=== PATIENT | male | born 1960 | race Caucasian/White ===

== ENCOUNTER 2017-06-15 17:52 | Inpatient (IN) | payer OTHER ==
[2017-06-15] MEDS ORDERED: NS 1,000 ML IV ONE ×2 (18:15→18:46)
--- NOTE | 2017-06-15 18:18 | EDPHY ---
H & P Time Seen by Provider: 06/15/17 17:56 HPI/ROS: CHIEF COMPLAINT: Black stools and vomiting blood HISTORY OF PRESENT ILLNESS: Patient started having black stools yesterday. This morning he felt nauseous, had a shot of hard alcohol and then proceeded to vomit including blood. Patient is continued to have black stools with rapid heart rate. Associated with a little bit of abdominal discomfort but no further vomiting. No chest pain shortness of breath or lightheadedness. No Pepto-Bismol or any red colored food. He has daily alcohol but denies previous history of ulcer or varices. He also takes about 8-10 aspirin week for various orthopedic things REVIEW OF SYSTEMS: Eye: no change in vision ENT: no sore throat Cardiac: no chest pain or syncope Pulmonary: no cough or SOB Abdomen: HPI Musculoskeletal: no back pain Skin: no rash Neuro: no headache Constitutional: no fever : no urinary symptoms A comprehensive 10 point review of systems is otherwise negative aside from elements mentioned in the history of present illness. PAST MEDICAL HISTORY: Includes hypertension Social history: Daily alcohol General Appearance: Alert and conversant, cooperative. Eyes: No scleral icterus. ENT, Mouth: Normal mucous membranes. Respiratory: Normal respiratory effort, breath sounds equal, lungs are clear to auscultation. Cardiovascular: Regular rate and rhythm. Tachycardia without murmur Gastrointestinal: Abdomen is soft and non tender. Rectal exam shows melena. Neurological: Alert, face symmetric, normal motor and sensory in extremities. Skin: Warm and dry, no rashes. Musculoskeletal: No peripheral edema. Psychiatric: Not agitated. Emergency Department course/MDM: CBC and chemistry, fecal occult blood, protime and liver function test. Normal saline 1 L IV. 182: Fecal occult blood positive, hemoglobin hematocrit 14 and 43, Protonix drip started in the ED. Admission hospitalist for endoscopy. Normal INR, low suspicion for varices. 184: Discussed for Kristian. Smoking Status: Never smoked Constitutional: Initial Vital Signs Temperature (C) 36.5 C 06/15/17 17:52 Heart Rate 114 H 06/15/17 17:52 Respiratory Rate 18 06/15/17 17:52 Blood Pressure 161/108 H 06/15/17 17:52 O2 Sat (%) 96 06/15/17 17:52 O2 Delivery Mode Room Air Allergies/Adverse Reactions: No Known Allergies Allergy (Unverified 06/15/17 17:58) Home Medications: Medication Instructions Recorded Aspirin [Aspirin 325 mg (*)] 650 mg PO DAILY PRN 06/15/17 Atenolol [Tenormin 50 mg (*)] 50 mg PO DAILY 06/15/17 LORazepam [Ativan (*)] 1 mg PO DAILY PRN 06/15/17 Medical Decision Making - Diagnostics EKG Interpretation: 12-lead EKG interpreted by me; official reading is in trace master. My interpretation is sinus tachycardia rate 107, PVC Differential Diagnosis: Differential considered including but not limited to esophageal varices, gastric ulcer, duodenal ulcer, lower gi bleed. Consult/Admit Bed Type: [place] [id number] - Data Points Laboratory Results: Laboratory Results 06/15/17 18:15 06/15/17 18:15 06/15/17 06/15/17 06/15/17 18:15 18:15 18:15 WBC RBC Hgb Hct MCV MCH MCHC RDW Plt Count MPV Neut % (Auto) Lymph % (Auto) Luce % (Auto) Eos % (Auto) Baso % (Auto) Nucleat RBC Rel Count Absolute Neuts (auto) Absolute Lymphs (auto) Absolute Monos (auto) Absolute Eos (auto) Absolute Basos (auto) Absolute Nucleated RBC Immature Gran % Immature Gran # PT 14.9 SEC SEC (12.0-15.0) INR 1.15 (0.83-1.16) APTT 26.2 SEC SEC (23.0-38.0) Sodium Potassium Chloride Carbon Dioxide Anion Gap BUN Creatinine Estimated GFR Glucose Calcium Phosphorus 2.8 mg/dL mg/dL (2.5-4.5) Total Bilirubin Conjugated Bilirubin Unconjugated Bilirubin AST ALT Alkaline Phosphatase Total Protein Albumin Stool Occult Bld Scrn Patient ABO/Rh AB POSITIVE Antibody Screen Pending 06/15/17 06/15/17 06/15/17 18:15 18:15 18:15 WBC 7.56 10^3/uL 10^3/uL (3.80-9.50) RBC 4.17 10^6/uL L 10^6/uL (4.40-6.38) Hgb 14.6 g/dL g/dL (13.7-17.5) Hct 43.6 % % (40.0-51.0) MCV 104.6 fL H fL (81.5-99.8) MCH 35.0 pg H pg (27.9-34.1) MCHC 33.5 g/dL g/dL (32.4-36.7) RDW 12.7 % % (11.5-15.2) Plt Count 145 10^3/uL L 10^3/uL (150-400) MPV 10.9 fL fL (8.7-11.7) Neut % (Auto) 61.0 % % (39.3-74.2) Lymph % (Auto) 27.1 % % (15.0-45.0) Luce % (Auto) 9.8 % % (4.5-13.0) Eos % (Auto) 0.5 % L % (0.6-7.6) Baso % (Auto) 1.2 % % (0.3-1.7) Nucleat RBC Rel Count 0.0 % % (0.0-0.2) Absolute Neuts (auto) 4.61 10^3/uL 10^3/uL (1.70-6.50) Absolute Lymphs (auto) 2.05 10^3/uL 10^3/uL (1.00-3.00) Absolute Monos (auto) 0.74 10^3/uL 10^3/uL (0.30-0.80) Absolute Eos (auto) 0.04 10^3/uL 10^3/uL (0.03-0.40) Absolute Basos (auto) 0.09 10^3/uL 10^3/uL (0.02-0.10) Absolute Nucleated RBC 0.00 10^3/uL 10^3/uL (0-0.01) Immature Gran % 0.4 % % (0.0-1.1) Immature Gran # 0.03 10^3/uL 10^3/uL (0.00-0.10) PT INR APTT Sodium 146 mEq/L H mEq/L (135-145) Potassium 4.0 mEq/L mEq/L (3.5-5.2) Chloride 106 mEq/L mEq/L (97-110) Carbon Dioxide 20 mEq/l L mEq/l (22-31) Anion Gap 20 mEq/L H mEq/L (8-16) BUN 31 mg/dL H mg/dL (7-23) Creatinine 0.8 mg/dL mg/dL (0.7-1.3) Estimated GFR > 60 Glucose 133 mg/dL H mg/dL (70-100) Calcium 9.7 mg/dL mg/dL (8.5-10.4) Phosphorus Total Bilirubin 1.3 mg/dL mg/dL (0.1-1.4) Conjugated Bilirubin 0.6 mg/dL H mg/dL (0.0-0.5) Unconjugated Bilirubin 0.7 mg/dL mg/dL (0.0-1.1) AST 87 IU/L H IU/L (17-59) ALT 107 IU/L H IU/L (21-72) Alkaline Phosphatase 64 IU/L IU/L (38-126) Total Protein 8.0 g/dL g/dL (6.3-8.2) Albumin 5.0 g/dL g/dL (3.5-5.0) Stool Occult Bld Scrn POSITIVE H (NEGATIVE) Patient ABO/Rh Antibody Screen Medications Given: Discontinued Medications Sodium Chloride (Ns) 1,000 mls @ 0 mls/hr IV EDNOW ONE; Wide Open PRN Reason: Protocol Stop: 06/15/17 18:16 Last Admin: 06/15/17 18:27 Dose: 1,000 mls Sodium Chloride (Ns) 1,000 mls @ 3,000 mls/hr IV ONCE ONE Stop: 06/15/17 19:05 Last Admin: 06/15/17 19:07 Dose: 1,000 mls Pantoprazole Sodium (Protonix) 80 mg IVP EDNOW ONE Stop: 06/15/17 18:25 Last Admin: 06/15/17 18:34 Dose: 80 mg Departure - Departure Disposition: [facility] Inpatient Acute Clinical Impression: Upper GI bleed Condition: Fair
[2017-06-15 18:21] LABS: PLATELET COUNT 145 10^3/uL (150-400)
[2017-06-15] MEDS ORDERED: PANTOPRAZOLE SODIUM 40 MG VIAL IVP ONE (18:24)
[2017-06-15 18:30] LABS: INR 1.15 (0.83-1.16); PROTIME(PATIENT) 14.9 SEC (12.0-15.0)
[2017-06-15] MEDS ORDERED: ACETAMINOPHEN 325 MG TAB PO PRN (18:46)
[2017-06-15] MEDS ORDERED: ONDANSETRON 4 MG/2 ML VIAL IVP PRN (18:46)
[2017-06-15] MEDS ORDERED: NS 1,000 ML IV SCH (19:00)
--- NOTE | 2017-06-15 19:15 | CPEKG ---
Heart Rate: 107 RR Interval: 561 P-R Interval: 180 QRSD Interval: 86 QT Interval: 344 QTC Interval: 459 P Elmore: 44 QRS Elmore: -33 T Wave Elmore: 72 EKG Severity - ABNORMAL ECG - EKG Impression: SINUS TACHYCARDIA EKG Impression: MULTIFORM VENTRICULAR PREMATURE COMPLEXES EKG Impression: LEFT AXIS DEVIATION Electronically Signed By: Jorge Danielle 15-Jun-2017 19:34:56
[2017-06-15] MEDS: chlordiazePOXIDE 25 MG CAP PO SCH (20:38)
[2017-06-15] MEDS: ONDANSETRON DISINTEGRATING 4 MG TAB PO PRN (20:38)
--- NOTE | 2017-06-15 21:40 | GHP ---
[f rep st] HISTORY AND PHYSICAL DATE OF ADMISSION: 06/15/2017 CHIEF COMPLAINT: Bloody emesis. HISTORY OF PRESENT ILLNESS: A 56-year-old male with extensive alcohol abuse, who presents with appro ximately 72 hours of melena, then followed with nausea and vomiting which contained bright red blood streaking as well as coffee-grounds. The patient was feeling weak and lightheaded, and therefore pre sented to the emergency department. The patient describes drinking usually a pint or 2 of vodka a da y. He reports that he stops drinking at 10:00 p.m. at night and begins drinking again at 8:00 a.m.. If he does not start early in the morning, then he will have tremors that make it difficult to compl ete simple tasks or he has a sensation of severe anxiety and discomfort. The patient is in the emerg ency department, denying chest pain and shortness of breath, denying cough, and denying subjective fe vers or chills. Reports previously being able to tolerate food, but now is feeling anxious and not h ungry. Denies any diarrhea, simply melena, multiple episodes in the 3 days preceding. Denies any lo wer extremity edema or rashes. PAST MEDICAL HISTORY: 1. Hypertension. 2. Alcohol abuse. SOCIAL HISTORY: Negative for tobacco. 1-2 pints of hard alcohol a day. Denies illicit drugs. FAMILY HISTORY: Positive for hypertension. REVIEW OF SYSTEMS: A 10-point review of systems is negative with the exception of that reported in t he HPI. PHYSICAL EXAMINATION: VITAL SIGNS: Blood pressure 152/92, heart rate 112, respiratory rate 18, sati ng 96% on room air, 36.6. GENERAL: This is a middle-aged male in mild distress. HEENT: Exam is no table for dry mucous membranes. Eye exam is negative for any icterus. CARDIAC: The patient has a r egular rhythm, but tachycardic. PULMONARY: Clear to auscultation bilaterally. GASTROINTESTINAL: P ositive bowel sounds. ABDOMEN: Soft and nontender. MUSCULOSKELETAL: Negative for any lower extrem ity edema. SKIN: Exam is negative for any rashes. NEUROLOGIC: The patient has a tremor on my exam ination. PSYCHIATRIC: He is tearful on my interview and exam. DATA: EKG, which I personally reviewed and interpreted, shows a sinus rhythm, leftward axis deviatio n, and no acute ST-T changes. LABORATORY DATA: White count 7.5, hematocrit 43.6, MCV 104, platelets 145. Creatinine 0.8, BUN 31, anion gap 20. ASSESSMENT AND PLAN: This is a 56-year-old male, presenting with melena and hematemesis. 1. Acute upper gastrointestinal bleed. Suspect this is related to his alcohol abuse. He does not h ave a liver diagnosis at this time. High suspicion for gastritis or ulcer disease in his stomach. W e will keep the patient n.p.o. Fluid resuscitate and start on IV pantoprazole. We will monitor clos kvng in the step-down unit. Gastroenterology has been called from the emergency department for an EGD tomorrow. 2. Acute alcohol withdrawal. The patient already has tremors and tachycardia. We will initiate the CIWA protocol, as well as scheduled Librium and IV Ativan p.r.n. I do not want to give this patient alcohol in the hospital, as I suspect alcohol is likely the cause of his upper gastrointestinal blee d. We will continue to monitor his H and H, and vital signs closely. 3. Anion gap metabolic acidosis. Suspect secondary to starvation ketosis with alcohol abuse. We wi ll fluid resuscitate and recheck in the morning. 4. Macrocytosis. Again, suspect this is likely secondary to bone marrow involvement from alcohol ab use. We will recheck a CBC in the morning. 5. Hypertension. We will hold the patient's home antihypertensives in the setting of acute bleed. Tolerate elevated blood pressures comfortably. 6. Prophylaxis is contraindicated in the setting of acute gastrointestinal bleed. 7. Reported anxiety. The patient describes having an Ativan prescription in the home. We spent jinny e time during my interview discussing how dangerous a combination of benzodiazepines and alcohol can be. Hopeful the patient has not made a habit of combining these 2 medications in the outpatient sett ing. DISPOSITION: I expect greater than 2 midnights, as the patient is presenting with an acute GI bleed and active alcohol withdrawal. He will take greater than 2 midnights for a diagnostic workup and med ical stabilization. I discussed the case with the emergency room physician. The patient will be triaged to the PCU for c are. /[id number]/MODL
[2017-06-15] MEDS: THIAMINE HCL 500 MG in NS 500 ML IV SCH (21:45)
[2017-06-16] MEDS: PANTOPRAZOLE SODIUM 40 MG VIAL IVP SCH ×3 (00:34→20:39)
[2017-06-16] MEDS: LORazepam 2 MG/ML INJ IVP PRN ×5 (00:38→20:44)
--- NOTE | 2017-06-16 02:26 | PDMN ---
Medical Necessity Medical necessity: C/M review: Patient meets INPT criteria under MCG M-180 Gastrointestinal bleed, upper, M-595 Substance related disorders: Acute- upper GI bleed, (72 hrs. melena then vomiting bright red blood streaking as well as coffee grounds), alcohol withdrawal, (tremors, tachycardia - heart rate 114-120) , anion gap metabolic acidosis, macrocytosis, Na 146, anion gap 20, CO2 20, BUN 31, AST 87, ALT 107, stool occult blood screen positive, requiring planned GI Consult, planned 06/16/2017 EGD, IV Thiamine, ongoing NPO, CIWA protocol, IV Ativan, IV Protonix Q 6 hrs., IV NS 100 ml/hr infusion, cardiac monitoring, pulse oximetry comorbid hypertension, alcohol abuse. MD anticipates > 2 MN LOS for ongoing med nec for eval and TX of above.
[2017-06-16 04:12] LABS: PLATELET COUNT 101 10^3/uL (150-400)
[2017-06-16] MEDS: chlordiazePOXIDE 25 MG CAP PO SCH (08:44)
[2017-06-16] MEDS: THIAMINE HCL 500 MG in NS 500 ML IV SCH (08:48)
--- NOTE | 2017-06-16 09:59 | PDANEPAE ---
ANE History of Present Illness 56 YO for egd for ugi bleed ANE Past Medical History - Cardiovascular History Hx Hypertension: Yes - Pulmonary History Hx Oxygen in Use at Home: No Hx Sleep Apnea: No Sleep Apnea Screening Result - Last Documented: Positive - Endocrine History Hx Diabetes: No - Chronic Pain History Chronic Pain: No ANE Review of Systems Review of Systems: - Exercise capacity METS (RN): 4 METS ANE Patient History - Allergies Allergies/Adverse Reactions: No Known Allergies Allergy (Unverified 06/15/17 17:58) - Home Medications Home medications: home medication list seen and reviewed Home Medications: Aspirin [Aspirin 325 mg (*)] 650 mg PO DAILY PRN 06/15/17 [Last Taken 06/14/17] Atenolol [Tenormin 50 mg (*)] 50 mg PO DAILY 06/15/17 [Last Taken 06/15/17] LORazepam [Ativan (*)] 1 mg PO DAILY PRN 06/15/17 [Last Taken 06/15/17] - NPO status NPO Since - Liquids (Date): 06/16/17 NPO Since - Liquids (Time): 08:00 NPO Since - Solids (Date): 06/15/17 NPO Since - Solids (Time): 16:00 - Anes Hx Anes Hx: no prior problems - Smoking Hx Smoking Status: Never smoked ANE Labs/Vital Signs - Labs Result Diagrams: 06/16/17 03:20 06/16/17 03:20 - Vital Signs Blood Pressure: 134/68 Heart Rate: 120 Respiratory Rate: 16 O2 Sat (%): 97 Height: 5 ft 10 in Weight: 97.522 kg ANE Physical Exam - Airway Neck exam: FROM Mallampati Score: Class 2 Mouth exam: normal dental/mouth exam - Pulmonary Pulmonary: no respiratory distress - Cardiovascular Cardiovascular: regular rate and rhythym - ASA Status ASA Status: II ANE Anesthesia Plan Anesthesia Plan: general endotracheal anesthesia
[2017-06-16] MEDS ORDERED: PROPOFOL/EMULSION 500 MG/50 ML BOTTLE IV ONE (10:04)
[2017-06-16] MEDS ORDERED: REMIFENTANIL HCL 1 MG VIAL ONE (10:04)
[2017-06-16] MEDS ORDERED: fentaNYL 100 MCG/2 ML INJ ONE (10:04)
[2017-06-16] MEDS ORDERED: DIAZEPAM 5 MG/ML 1 ML SYR IVP PRN (10:45)
[2017-06-16] MEDS ORDERED: fentaNYL 100 MCG/2 ML INJ IVP PRN (10:45)
[2017-06-16] MEDS ORDERED: NALOXONE HCL 0.4 MG/ML INJ IVP PRN (10:45)
[2017-06-16] MEDS ORDERED: ONDANSETRON 4 MG/2 ML VIAL IVP PRN (10:45)
--- NOTE | 2017-06-16 10:45 | POSTANESTH ---
Post Anesthetic Evaluation Cardiovascular Status: Similar to Pre-Op Cond Respiratory Status: Normal, Stable Level of Consciousness/Mental Status: Can Participate in Eval Pain Control: Adequate, Prn Tx Ordered Nausea/Vomiting Control: Adequate, Prn Tx Ordered Complications Possibly Related to Anesthesia: None Noted
--- NOTE | 2017-06-16 11:12 | GCON ---
[f rep st] CONSULTATION DATE OF CONSULTATION: 06/16/2017 REFERRING PHYSICIAN: Luz Schwartz MD REASON FOR CONSULTATION: Melanotic stools. CHIEF COMPLAINT: Melanotic stools. HISTORY OF PRESENT ILLNESS: The patient is a 56-year-old male with history of alcohol use who presents to [facility] with complaints of melena as well as hematemesis. The patient was doing well until approximately 72 hours prior to admission when he started to have multiple episodes of black, tarry bowel movements. He had approximately 3-4 on the 1st day and the same amount the next day. He also had nausea and had sn episode of vomiting, which he thought contained bright red blood as well as coffee ground emesis. The patient also had complaints of feeling weak and lightheadedness and thus came for further evaluation. The patient does have 2 aspirin a day for daily aches. He also drinks vodka on a daily basis. He denies any chest pain, shortness of breath, cough, fevers, or chills. He also denies any diarrhea or bright red blood per rectum. I am asked by Dr. Schwartz to evaluate the patient in consultation regarding his hematemesis. PAST MEDICAL HISTORY: 1. Hypertension. 2. Alcohol use. PAST SURGICAL HISTORY: Multiple orthopedic surgeries. SOCIAL HISTORY: Positive alcohol. No tobacco. FAMILY HISTORY: Family has no history of colon cancer, esophageal or stomach cancer. ALLERGIES: NKDA MEDICATIONS: Aspirin 325 mg take approximately 2 a day, atenolol 50 mg a day, lorazepam as needed. REVIEW OF SYSTEMS: A 14-point comprehensive review of systems was obtained, positives per HPI. PHYSICAL EXAM: VITAL SIGNS: Blood pressure 134/68, heart rate 120, respirations 16. GENERAL: Awake, alert, oriented x3. Patient is shaky and appears to be in alcohol withdrawal. HEENT: Anicteric sclerae. Moist mucosa. NECK: No JVD. CARDIOVASCULAR: Tachycardic. No murmurs or gallops appreciated. LUNGS: Clear to auscultation bilateral. No wheezes, rales or rhonchi. ABDOMEN: Soft, nontender, nondistended. Positive bowel sounds. No guarding. No rebound. EXTREMITIES: No clubbing, cyanosis or edema. NEUROLOGIC: 2-12 grossly intact. PSYCH: Normal affect. SKIN: No rash. LYMPH: No lymphadenopathy. MUSCULOSKELETAL: No obvious joint deformities. LABORATORY DATA: WBC 6.09, hemoglobin 11.6, hematocrit 35.0, platelets 101. INR 1.15. Sodium 144, potassium 4.2, chloride 113, bicarb 19, BUN 29, creatinine 0.7, glucose 122, AST 61, ALT 82. Stool for occult blood positive. ASSESSMENT AND PLAN: 1. Melanotic bowel movements- with episode of hematemesis. Post hemorrhagic anemia. Does take nonsteroidal anti-inflammatories and has a significant history of alcohol use. INR normal. Recommend to monitor H/H and continue PPI infusion. At this time, I also recommend to proceed with urgent upper endoscopy to delineate the cause of his symptoms. The risks, benefits, and alternatives of the procedure were discussed in great detail with the patient. The risk of infection, bleeding, perforation, and sedation were discussed. Due to his episode of hematemesis as well as being in acute alcohol withdrawal, he is at a high risk of sedation. I thus recommend general anesthesia, and will discuss with Anesthesiology. 2. Hypertension. 3. History of anxiety on lorazepam. Thank you very much for the consultation. /[id number]/MODL [email or web address]
--- NOTE | 2017-06-16 11:34 | GIREPORT ---
[facility] Surgical Services - Endoscopy Department Patient Name: Josep Ferreira Procedure Date: 06/16/2017 9:47 AM Patient Type: Inpatient Attending MD/ ER Physician: Flex Townsend MD Procedure: Upper GI endoscopy Indications: Hematemesis, Melena Patient Profile: 56 year old male presents for evaluation of hematemesis and black, singh y stools. Providers: Flex Townsend MD Medicines: Monitored Anesthesia Care Complications: No immediate complications. Estimated blood loss: Minimal. Description of Procedure: After obtaining informed consent, the endoscope was passed under direct vision. Throughout the procedure, the patient's blood pressure, pulse, and oxygen saturations were monitored continuously. The Endoscope was intro duced through the mouth, and advanced to the second part of duodenum. The [facility] er GI endoscopy was accomplished without difficulty. The patient tolerated th e procedure well. Findings: The examined esophagus was normal. A hiatal hernia was present. Three superficial gastric ulcers with no stigmata of bleeding were foun d in the gastric antrum. The largest lesion was 5 mm in largest dimension. Patchy mildly erythematous mucosa was found in the gastric body and in the gastric antrum. Biopsies were taken with a cold forceps for histology. The examined duodenum was normal. Estimated Blood Loss: Estimated blood loss was minimal. Post Op Diagnosis: - Normal esophagus. - Hiatal hernia. - Gastric ulcers with no stigmata of bleeding. - Erythematous mucosa in the gastric body and antrum. Biopsied. - Normal examined duodenum. - Etiology? Suspect bleeding is from NSAID use (gastric ulcers). Recomm end NSAID avoidance and PPI. Await biopsy results. No signs of acvie GI ble ed. No varices. GI will sign off. Thank you for the consultation! Recommendation: - Discharge patient to home (with escort). - Resume previous diet. - Continue present medications. - Await pathology results. - No aspirin, ibuprofen, naproxen, or other non-steroidal anti-inflamma tory drugs. - Use a proton pump inhibitor PO daily. - GI will sign off. - Thank you for allowing me to participate in the care of your patient. Attending Participation: I personally performed the entire procedure. Flex Townsend MD Flex Townsend MD 06/16/2017 11:33:56 AM This report has been signed electronicallyFlex Townsend MD Number of Addenda: 0 Note Initiated On: 06/16/2017 9:47 AM [email or web address]
--- NOTE | 2017-06-16 12:10 | HOSPPROG ---
Hospitalist Progress Note Assessment/Plan: * UGIB - - possible NSAID induced -still clinically bleeding - follow H/H -no active bleeding on EGD however -continue PPI -advance diet -DC NSAIDS -biopsy pending * ABL anemia -continue to follow H/H * Etoh withdrawal - 2 pints vodka per day -continue benzos per CIWA -IV thiamine -patient expresses interest in cessation -uses Etoh to treat underlying anxiety disorder -recommended outpatient consult for anxiety * Increased LFT - due to Etoh -no evidence for cirrhosis * HTN -continue atenolol Subjective: Still with vomiting and loose stool with blood Objective: Vital Signs Temp Pulse Resp BP Pulse Ox 36.8 C 110 H 18 135/89 H 93 06/16/17 11:43 06/16/17 11:43 06/16/17 11:43 06/16/17 11:43 06/16/17 11:43 Laboratory Results 06/16/17 03:20 06/16/17 03:20 06/15/17 06/16/17 06/17/17 05:59 05:59 05:59 Intake Total 1000 550 Output Total 1050 Balance -50 550 PT 14.9 SEC (12.0-15.0) 06/15/17 18:15 INR 1.15 (0.83-1.16) 06/15/17 18:15 EKG viewed, my personal interpretation is - NSR, no ST changes GI procedure note reviewed - gastric ulcers, look like NSAID related - Physical Exam Constitutional: no apparent distress, appears nourished, not in pain Cardiovascular: regular rate and rhythym, no murmur, rub, or gallop Respiratory: no respiratory distress, no rales or rhonchi, clear to auscultation Gastrointestinal: normoactive bowel sounds, soft, non-tender abdomen, no palpable masses Skin: no rashes or abrasions, no fluctuance, no induration Neurologic: AAOx3, sensation intact bilaterally Psychiatric: interacting appropriately, not anxious, not encephalopathic, thought process linear ICD10 Worksheet Patient Problems: Problems Problem Status Onset Upper GI bleed Acute
--- NOTE | 2017-06-16 14:51 | ASMTCMCOM ---
CM Note CM Note Notes: 06/16/2017 Case Management Note Met pt during rounds with fellow team members. Pt expressed desire to stop drinking during rounds today. Contacted [facility] to arrange ETOH cessation supports for pt. Instructed by [facility] to call manager rn case Velma at [phone] tomorrow morning so Velma can schedule appointments for follow up for pt. Case Management d/c poc: to be determined after consulting with [facility] Electrophysiology Technician. Case Management to follow. Date Signed: 06/16/2017 02:50 PM Electronically Signed By:Susan Joy RN
--- NOTE | 2017-06-16 15:20 | ASMTCAGE ---
CAGE Do you feel you ought to Answers: Yes cut down on your drinking or drug use? Do people annoy you by Answers: No criticizing your drinking or drug use? Do you feel guilty about Answers: Yes your drinking or drug use? Do you drink or use drugs Answers: Yes first thing in the morning (Eye Telephone Cleaner)? Additional Comments pt reports a daily drinking problem for 10 years. Pt reports using an eye furnace tender 5 times a week. Pt reports binge drinking for approximately 5 years prior to starting his daily drinking habits. Date Signed: 06/16/2017 03:19 PM Electronically Signed By:Susan Joy RN
[2017-06-16] MEDS: ATENOLOL 50 MG TAB PO SCH (15:55)
[2017-06-17] MEDS: LORazepam 2 MG/ML INJ IVP PRN (03:25)
[2017-06-17 04:22] LABS: PLATELET COUNT 102 10^3/uL (150-400)
[2017-06-17 06:05] LABS: HEPATITIS B SURFACE ANTIGEN NEGATIVE (NEGATIVE)
[2017-06-17 06:13] LABS: HEPATITIS A ANTIBODY IGM (BCH) NEGATIVE (NEGATIVE); HEPATITIS B CORE AB IGM NEGATIVE (NEGATIVE)
[2017-06-17 06:23] LABS: HEPATITIS C ANTIBODY TOTAL NEGATIVE (NEGATIVE)
[2017-06-17 07:59] VITALS: BP 123/80; RESP 17; TEMP 98.2
[2017-06-17] MEDS ORDERED: chlordiazePOXIDE 25 MG CAP PO ONE (09:48)
--- NOTE | 2017-06-17 09:49 | HOSPPROG ---
Hospitalist Progress Note Assessment/Plan: 56 yo M w alcoholism, UGIB * UGIB - - possible NSAID induced -still clinically bleeding - follow H/H -no active bleeding on EGD however -continue PPI -advance diet -DC NSAIDS -biopsy pending * ABL anemia -continue to follow H/H * Etoh withdrawal - 2 pints vodka per day -continue benzos per CIWA -IV thiamine -patient expresses interest in cessation -uses Etoh to treat underlying anxiety disorder -recommended outpatient consult for anxiety * Increased LFT - due to Etoh -no evidence for cirrhosis * HTN -continue atenolol dispo: home today > 30 minutes see dc summary Subjective: no bm. acknowledges anxiety Objective: Vital Signs Temp Pulse Resp BP Pulse Ox 36.8 C 79 17 123/80 H 93 06/17/17 07:59 06/17/17 07:59 06/17/17 07:59 06/17/17 07:59 06/17/17 07:59 Laboratory Results 06/17/17 03:15 06/17/17 03:15 06/16/17 06/17/17 06/18/17 05:59 05:59 05:59 Intake Total 1000 3800 Output Total 1050 1575 Balance -50 2225 PT 14.9 SEC (12.0-15.0) 06/15/17 18:15 INR 1.15 (0.83-1.16) 06/15/17 18:15 - Physical Exam Constitutional: no apparent distress, appears nourished Eyes: PERRL, anicteric sclera Ears, Nose, Mouth, Throat: moist mucous membranes, hearing normal Cardiovascular: regular rate and rhythym, no murmur, rub, or gallop Respiratory: no respiratory distress, no rales or rhonchi Gastrointestinal: normoactive bowel sounds, soft, non-tender abdomen Genitourinary: no bladder fullness, No swartz in urethra Skin: warm, normal color Musculoskeletal: full muscle strength, no muscle tenderness Neurologic: AAOx3 ICD10 Worksheet Patient Problems: Problems Problem Status Onset Upper GI bleed Acute
[2017-06-17] MEDS: PANTOPRAZOLE SODIUM 40 MG VIAL IVP SCH (10:33)
[2017-06-17] MEDS: ATENOLOL 50 MG TAB PO SCH (10:33)
[2017-06-17] MEDS: THIAMINE HCL 500 MG in NS 500 ML IV SCH (10:39)
[2017-06-17] MEDS ORDERED: FLU VACC QS 2017-18 (3YR+)/PF 0.5 ML SYR (FLUARIX QUAD) IM ONE (12:04)
[2017-06-17 12:14] VITALS: PULSE 104; O2SAT 94
[2017-06-17] MEDS: ONDANSETRON DISINTEGRATING 4 MG TAB PO PRN (12:17)
--- NOTE | 2017-06-17 17:03 | ASMTLACE ---
ARNULFO Length of stay for Answers: 1 day current admission Acuity / Level of Answers: Yes Care: Did the patient have an inpatient admission? Comorbidities - select Answers: Other Notes: HTN, melena all that apply # of Emergency department Answers: 1-2 visits in the last 6 months Social determinants Answers: History of substance abuse (ETOH, street drugs, prescription drugs, etc.) Mental health diagnosis (anxiety, depression, pers onality disorders, etc.) Score: 12 Date Signed: 06/17/2017 05:03 PM Electronically Signed By:Susan Joy RN
--- NOTE | 2017-06-17 17:29 | PDIAF ---
- Diagnosis Diagnosis: upper GI bleed Code Status: Full Code - Medication Management Discharge Medications: Medications to Continue on Transfer Atenolol [Tenormin 50 mg (*)] 50 mg PO DAILY 06/15/17 [Last Taken 06/15/17] LORazepam [Ativan (*)] 1 mg PO DAILY PRN 06/15/17 [Last Taken 06/15/17] PARoxetine HCL [Paxil 20mg (*)] 20 mg PO DAILY #30 tab 06/17/17 [Last Taken Unknown] Pantoprazole Sodium [Protonix 40mg (*)] 40 mg PO BID #60 tab 06/17/17 [Last Taken Unknown] Discharge Medications: Refer to the Discharge Home Medication list for PRN reason. - Orders Services needed: Registered Nurse, Master Fleet Maintenance Manager, Physical Therapy - Follow Up Care Current Providers and Referrals: NONE *PRIMARY CARE P,. [Primary Care Provider] -
--- NOTE | 2017-06-17 18:30 | GDS ---
[f rep st] DISCHARGE SUMMARY DISCHARGE DIAGNOSES: 1. Upper gastrointestinal bleed secondary to gastric ulcers. 2. Alcoholism with mild withdrawal. 3. Macrocytosis. 4. Anxiety. Please see admission history and physical by Dr. Luz Schwartz. HOSPITAL COURSE: The patient presented with melena. He had a guaiac positive exam. He had an eleva noemi BUN to creatinine ratio. He underwent upper endoscopy, which showed ulcers that were benign in appearance. There did not have evidence of active bleeding. He did not require transfusion. He had mild withdrawal, treated with Ativan. On the day of discharge, the patient was a bit unsteady on his feet. He was seen by PT who recommend home PT, which was arranged. He was given a dose of Librium at the time of discharge, and prescribe d twice daily PPI and Paxil for his underlying anxiety disorder. /[id number]/MODL
--- NOTE | 2017-06-17 18:48 | ASDISCHSUM ---
Discharge Information Plan Status:Home with Home Health Medically Cleared to Leave:06/16/2017 Discharge Date:06/17/2017 12:50 PM CM D/C Disposition:Home Health Service [facility] D/C Disposition:[id number] Projected Discharge Date:06/17/2017 11:00 AM Transportation at D/C:Self Discharge Delay Reason: Follow-Up Date:06/17/2017 11:00 AM Discharge Slot: Final Diagnosis: Placement Information Referral Type:*Home Health Care Services Referral ID:[id number] Provider Name:[facility] Address 1:[address] [facility] Address 2: City:[place] Selection Factors: State:[place] Patient Contact Information Contact Name:NITIN Relationship: Address: Home Phone: Work Phone: City: [facility] Phone: [facility] Code: Email: Financial Information Financial Class:HMO and PPO Plans Primary Plan Desc:[facility] Primary Plan Number:[id number] Secondary Plan Desc: Secondary Plan Number: Assessment Information LACE LACE Length of stay for Answers: 1 day current admission Acuity / Level of Answers: Yes Care: Did the patient have an inpatient admission? Comorbidities - select Answers: Other Notes: HTN, melena all that apply # of Emergency department Answers: 1-2 visits in the last 6 months Social determinants Answers: History of substance abuse (ETOH, street drugs, prescription drugs, etc.) Mental health diagnosis (anxiety, depression, pers onality disorders, etc.) Score: 12 Date Signed: 06/17/2017 05:03 PM Electronically Signed By:Susan Joy RN [facility] CM Progress Note CM Note CM Note Notes: 06/16/2017 Case Management Note Met pt during rounds with fellow team members. Pt expressed desire to stop drinking during rounds today. Contacted Ernest to arrange ETOH cessation supports for pt. Instructed by Ernest to call showcase maker Velma at [phone] tomorrow morning so Velma can schedule appointments for follow up for pt. Case Management d/c poc: to be determined after consulting with [facility] Screening Unit Registered Nurse. Case Management to follow. Date Signed: 06/16/2017 02:50 PM Electronically Signed By:Susan Joy RN CAGE Questionnaire CAGE Do you feel you ought to Answers: Yes cut down on your drinking or drug use? Do people annoy you by Answers: No criticizing your drinking or drug use? Do you feel guilty about Answers: Yes your drinking or drug use? Do you drink or use drugs Answers: Yes first thing in the morning ([employer])? Additional Comments pt reports a daily drinking problem for 10 years. Pt reports using an eye medical art therapist 5 times a week. Pt reports binge drinking for approximately 5 years prior to starting his daily drinking habits. Date Signed: 06/16/2017 03:19 PM Electronically Signed By:Susan Joy RN Case Management Discharge Plan Note Case Management Discharge Discharge Order Complete? Answers: Yes Patient to Obtain Answers: Independently Medications Transportation Arranged Answers: Other Notes: Self Faxed Final Orders Answers: Yes Agency/Facility Transfer Answers: Yes Report Printed & Faxed to Receiving Agency Discharge Comments Notes: 06/16/2017 Case Management Note Met w/pt. Appointment scheduled for [facility] [id number] for Saturday 06/24 at 11 am for treatment initiation group (TIG). Provided behavioral health phone number for pt. Encouraged pt to contact behavioral health if he feels he needs more support prior to Saturday. Strategized with pt around coping skills for maintaining sobriety until Saturday. Pt plans to call ex for support and to make an effort to leave his apartment for meals in an effort to socialize. Father is in [place] and supportive. Arranged home care through [facility] for RN and PT. Faxed final orders. Date Signed: 06/17/2017 06:46 PM Electronically Signed By:Alanis Heck RN Intervention Information
[2017-06-18] MEDS ORDERED: THIAMINE HCL 100 MG TAB PO SCH (09:00)
== END 2017-06-17 12:50 | disposition home health service (06) | DRG 378 ==
LOC: F2W 19:39
PROVIDERS: ADMIT Hospitalist; ATTEND Internal Medicine
PROC: HZ2ZZZZ Detoxification Services for Substance Abuse Treatment (ICD-10-PCS; 2017-06-16)
PROC: 0DB68ZX Excision of Stomach, Via Natural or Artificial Opening Endoscopic, Diagnostic (ICD-10-PCS; principal; 2017-06-16 10:00)
DX: K92.2 Gastrointestinal hemorrhage, unspecified (principal); K25.9 Gastric ulcer, unspecified as acute or chronic, without hemorrhage or perforation; F10.239 Alcohol dependence with withdrawal, unspecified; D62 Acute posthemorrhagic anemia; D75.89 Other specified diseases of blood and blood-forming organs; R94.5 Abnormal results of liver function studies; T39.395A Adverse effect of other nonsteroidal anti-inflammatory drugs [NSAID], initial encounter; K29.50 Unspecified chronic gastritis without bleeding; F41.9 Anxiety disorder, unspecified; I10 Essential (primary) hypertension; K44.9 Diaphragmatic hernia without obstruction or gangrene; Z79.82 Long term (current) use of aspirin
CPT/HCPCS: 96374; 97161-GP; 97166-GO; 97535-GO; G0008; G0472; J2060; J2704; J3010; J3411

== ENCOUNTER 2018-04-24 13:49 | Emergency (ER) | payer OTHER ==
[2018-04-24 15:10] LABS: PLATELET COUNT 170 10^3/uL (150-400)
--- NOTE | 2018-04-24 15:19 | CPEKG ---
Test Reason : OPEN Blood Pressure : / mmHG Vent. Rate : 079 BPM Atrial Rate : 079 BPM P-R Int : 177 ms QRS Dur : 097 ms QT Int : 387 ms P-R-T Axes : 052 -42 020 degrees QTc Int : 444 ms Sinus rhythm Left anterior fascicular block Abnormal R-wave progression, early transition Confirmed by Jorge Danielle ([id number]) on 04/24/2018 3:18:30 PM Referred By: Confirmed By:Jorge Danielle
--- NOTE | 2018-04-24 16:25 | EDPHY ---
General Time Seen by Provider: 04/24/18 14:28 Narrative: CLINICAL IMPRESSION: Malaise, alcohol intoxication ASSESSMENT/PLAN: 57-year-old male with a history of alcohol abuse presents to the emergency department intoxicated complaining of"an abnormal wave of an uneasy feeling "while sitting at his computer today. Patient is unable to elaborate upon this. He becomes tearful quite easily upon discussion of chronic depression and anxiety. He denies suicidal and homicidal ideations. He is concerned he has organ injury. Labs revealed chronic transaminitis likely secondary to chronic alcohol abuse. He is intoxicated with an alcohol over 200, no evidence of pancreatitis, alcoholic hepatitis, electrolyte imbalance, renal insufficiency or leukocytosis. EKG read and interpreted by ED attending with no acute abnormality identified. No complaints of chest pain. Troponin negative. Chest x-ray unremarkable. I had lengthy discussion with the patient regarding his symptoms. He has been consistently only getting 2-3 hours of sleep at night, admits to chronic depression and anxiety having worked with countless counselors, therapist, and Psychiatry. He is not currently medicated for this. He declined evaluation by [facility] and declined resources for alcohol dependence. He is accompanied by his father. He is of sound frame of mind, able to ambulate with a steady gait, and would like to be discharged home with PCP follow-up. I feel patient is safe for this. He admits that much of the symptoms he is experiencing could be due to anxiety. He has Valium at home that he takes very intermittently and I recommended he try taking a dose before bed to see if he can sleep. Warning signs return to ED sooner alignment discharge. DIFFERENTIAL DX: Differential includes but not limited to alcohol intoxication, metabolic disturbance, toxidrome, infection, ACS, pancreatitis, hepatic encephalopathy, dehydration, severe fatigue, depression and anxiety. ED PROCEDURES: See lab and/or imaging results below ED COURSE: ED diagnostic evaluation, EKG, chest x-ray, labs reviewed with patient in detail. Patient is very appreciative. When I began asking him more about depression anxiety as a possible contributing factor to his symptoms, patient becomes very tearful, and admits that symptoms may be due to anxiety. CHIEF COMPLAINT: Feeling unwell HPI: This is a 57-year-old male presents to the emergency department with vague complaints of feeling unwell. He reports he was sitting at his computer earlier today when he had a"we have of a sensation of un wellness". Patient cannot expand upon this much more. He states he does not have chest pain, shortness of breath, abdominal pain, nausea, vomiting, diarrhea. He has not had recent URI symptoms. No associated fevers or chills. He admits to drinking today and drinks every day. He denies illicit drug use. He admits that he has not been sleeping well. Patient's father arrived shortly after his arrival and patient became very tearful and emotional. He had several episodes crying during my discussion. He is concerned that something is very wrong with him. He admits that he has only been sleeping 2-3 hours a night. He is not currently taking anything for depression and anxiety but has suffered with this for most of his life. He reports seeing countless numbers of counselors, therapist, psychotherapist, psychiatrist and psychologist without any real benefit. He does have a prescription for Valium and takes this only very intermittently. He did take half tablet before arrival today. He also took atenolol because after taking his blood pressure he became concerned about a systolic measure of 160. 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 REVIEW OF SYSTEMS: All other systems negative Constitutional: No fever, no chills, appetite change. Generally feeling unwell Eyes: No discharge, vision change ENT: No sore throat, congestion, ear pain. Cardiovascular: No chest pain, no palpitations. Respiratory: No cough, no shortness of breath. Gastrointestinal: No abdominal pain, no vomiting, diarrhea. Genitourinary: No hematuria, dysuria, flank pain, pelvic pain Musculoskeletal: No back pain, joint swelling, joint pain, myalgias. Skin: No rashes, color change. Neurological: No headache, dizziness, weakness. PHYSICAL EXAM: General Appearance: Alert, oriented, appropriate, cooperative, NAD, well hydrated, non-toxic appearing, VSS, no hypoxia, tearful, obviously emotional, smells of alcohol. HEENT: TMs are clear bilaterally no perforation or FB, no injection, no evidence of serous or mucopurulent otitis. Oropharynx clear is no erythema or exudates, no tonsillar hypertrophy or asymmetry. Dentition without abnormality. Eyes: PERRLA, no acute vision change, nystagmus, swelling, discharge, pain or photosensitivity. Conjunctiva pink, no pallor or injection Neck: Supple, nontender, no lymphadenopathy, no midline pain, FROM, no meningismus. Respiratory: There are no retractions, lungs are clear to auscultation. Cardiac: Regular rate and rhythm, no murmurs or gallops. Gastrointestinal: Abdomen is soft, nontender, bowel sounds normal, no masses/ hernia, no rigidity, guarding or focal peritoneal findings. Neurological: Alert and oriented x 3, CN 2-12 grossly intact, normal gait no ataxia, DTR's intact, normal sensation and strength, no tremors Skin: Warm, dry, no rashes, no nodules on palpation. Musculoskeletal: Extremities are symmetrical, full range of motion, no tenderness, deformity, swelling, or erythema. Psychiatric: Patient is oriented X 3, there is no agitation. MEDICAL DECISION MAKING: Patient was seen independently. Secondary supervising physician at time of evaluation was Dr Danielle. Diagnosis: Acute alcohol intoxication, generalized malaise. New, requires workup Summary: See Assessment and Plan for summary of ED visit Clinical lab tests: ordered / reviewed. Independent visualization of images, tracing, or specimens: VS. Decision to obtain medical records or history from someone other than the patient: Patient's father Review / Summarize previous medical records: None available Patient Progress: Improved. - History Smoking Status: Never smoked - Objective Vital Signs: Initial Vital Signs Temperature (C) 36.9 C 04/24/18 13:56 Heart Rate 87 04/24/18 13:56 Respiratory Rate 18 04/24/18 13:56 Blood Pressure 178/108 H 04/24/18 13:56 O2 Sat (%) 95 04/24/18 13:56 O2 Delivery Mode Room Air Allergies/Adverse Reactions: No Known Allergies Allergy (Unverified 06/15/17 17:58) Home Medications: Medication Instructions Recorded Atenolol [Tenormin 50 mg (*)] 50 mg PO DAILY 06/15/17 LORazepam [Ativan (*)] 1 mg PO DAILY PRN 06/15/17 Pantoprazole Sodium [Protonix 40mg 40 mg PO BID #60 tab 06/17/17 (*)] Laboratory Results: Laboratory Results 04/24/18 15:00 04/24/18 15:00 Point of Care Test Results: Chemistry 04/24/18 15:04 POC Troponin I 0.01 ng/mL ng/mL (0.00-0.08) Departure - Departure Disposition: Home, Routine, Self-Care Clinical Impression: Malaise and fatigue, Alcohol intoxication Condition: Good Instructions: Weakness (ED) Additional Instructions: DISCHARGE INSTRUCTIONS FROM YOUR DOCTOR Thank you for visiting our emergency department today. Please keep in mind that discharge from the emergency department does not mean that there is nothing wrong - it simply means that we have not identified an emergency condition that requires further evaluation or treatment in the hospital. You should always plan to follow up with primary care for re-evaluation of your condition in the next 2-3 days. If you have been referred to a specialist, please call as soon as possible (today or tomorrow) to schedule your follow up appointment at the appropriate time. FOR WE DID NOT IDENTIFY ANY DANGEROUS LAB ABNORMALITIES, EKG CHANGES, OR CARDIAC ABNORMALITIES ON HER WORKUP TODAY. YOU DO HAVE LAB FINDINGS CONSISTENT WITH CHRONIC ALCOHOL ABUSE AND WE STRONGLY RECOMMEND TO CONSIDER ALCOHOL CESSATION. YOUR LIVER ENZYMES ARE ELEVATED. YOU CAN DISCUSS THIS WITH YOUR GI PROVIDER. YOUR SYMPTOMS MAY BE DUE TO UNDERLYING DEPRESSION OR ANXIETY AND WE RECOMMEND CONSULTATION WITH HER PRIMARY CARE PROVIDER AND MENTAL HEALTH. PLEASE CONSIDER TAKING A VALIUM AT NIGHT FOR THE NEXT SEVERAL NIGHTS TO TRY TO GET SLEEP. PLEASE RETURN TO THE EMERGENCY DEPARTMENT SOONER FOR WORSENING MALAISE, CHEST PAIN, CHEST TIGHTNESS OR SHORTNESS OF BREATH, FEELING SUICIDAL OR HOMICIDAL, INCREASED ANXIETY, OR ANY OTHER CONCERNS. People present with illnesses and injuries in different ways, and it is always possible that we have missed something. You may always return for re-evaluation if symptoms worsen or if they are not improving or if you develop new/different symptoms. Again, thank you for choosing our emergency department. We hope that you feel better. Referrals: NONE *PRIMARY CARE P,. [Primary Care Provider] - As per Instructions [facility] ,. [Edm Groups for Call Sched] - As per Instructions
[2018-04-24 16:35] VITALS: BP 152/86
== END 2018-04-24 16:35 | disposition home or self-care (01) ==
DX: F10.920 Alcohol use, unspecified with intoxication, uncomplicated (principal); R53.81 Other malaise; R53.83 Other fatigue
CPT/HCPCS: 84484-ER; G0480